=== PATIENT | female | born 2005 | race Caucasian/White ===

== ENCOUNTER 2023-07-06 13:10 | Outpatient (AMB) | payer OTHER, SELFPAY ==
--- NOTE | 2023-07-06 13:16 | A.OFFVIS_ITS ---
Intake Vital Signs 07/06/23 13:18 Height 5 ft Weight 132 lb 4.438 oz BMI 25.8 BP 113/68 Blood Pressure Location Lt brachial Position Sitting Pulse 94 Intake Visit Reasons: chronic constipation Intake Note: Jaime presents in the office as a new patient for constipation. CC: She states that she is here today for excessive constipation - she always has blood when she has a BM. Bloating in her stomach from not being able to have a BM. [employer] Required: No Allergies Seasonal Allergies Allergy (Mild, Verified 07/06/23 13:19) Unknown Medication List - Last Reconciled 07/06/23 by Abbey Stewart PA-C fluoxetine 10 mg PO DAILY magnesium citrate 150 mL PO DAILY naproxen (Naprosyn) 500 mg PO BID ondansetron 4 mg PO Q8H polyethylene glycol 3350 (Miralax) 17 grams PO DAILY sennosides (Ex-Lax (sennosides)) 10 mg PO BEDTIME trazodone 20 mg PO DAILY HPI HPI Comments History of Present Illness Details 2nd opinion-here today with her mother-s een previously by GI within complaints A 17 y/o female referred with constipation-stool is very hard- she has BRBPR when strains. She does not have any abdominal pain. No other complaints, She skip breakfast lunch- she eats daily Not usually eating any dinner- she eats some fruits, she does not drink much water No nausea, vomiting, hematemesis, abdominal pain, fever or chills She had a colonoscopy at [facility] in [place]- all normal bx-about 2 years ago [facility] Surgical History (Updated 07/07/23 @ 07:49 by Abbey Stewart PA-C) Hx of colonoscopy Hx of tonsillectomy Hx of appendectomy Family History (Updated 07/06/23 @ 13:41 by Abbey Stewart PA-C) Brother Colon polyps Social History (Updated 07/06/23 @ 13:41 by Abbey Stewart PA-C) Household Members: Family Alcohol intake: current Alcohol intake frequency: does not drink Patient Tobacco Use Status: Never used Tobacco Current occupation: [employer] Review of Systems Const All systems reviewed & are unremarkable except as noted in HPI and below Card Denies chest pain and Denies dyspnea Resp Denies dyspnea GI Denies abdominal pain, Reports hematochezia, Reports constipation, Denies nausea and Denies vomiting Physical Exam Vital Signs: Last Vital Signs Pulse 94 07/06/23 13:18 BP 113/68 07/06/23 13:18 BMI result Body Mass Index 25.8 Const General: cooperative, healthy appearing and comfortable Orientation/consciousness: patient oriented x3 Limitations: no limitations Eyes Sclerae: sclerae normal Resp Effort & Inspection: normal respiratory effort and able to speak in complete sentences Auscultation: clear to auscultation bilaterally, no rales, no rhonchi and no wheezes Cardio Rate: regular rate Rhythm: regular rhythm Heart sounds: S1 normal heart sound present and S2 normal heart sound present GI Inspection: Yes normal to inspection Palpation (GI): Soft to palpation, nontender and no guarding Auscultation: normal bowel sounds Skin General skin exam: no rashes or lesions noted Neuro General: patient oriented x3 Extrem General: Yes full ROM Psych Appearance: grossly normal and well kempt Mental Status: mental status grossly normal Speech and movement: Normal speech and movement present Affect: normal affect Attitude: cooperative Thought process: Normal thought process present Thought content: Normal thought content present Assessment & Plan Assessment & Plan (1) Chronic constipation: Comment: P/E- unremarkable mom present - questions- answered Code(s): K59.09 - Other constipation Plan: consistent bowel regimen HFD labs Plan Labs Bowel regimen HFD Orders: Orders Thyroid Stimulating Hormone 07/06/23 R19.8 - Other specified symptoms and signs involving the digestive system and abdomen Complete Blood Count Auto Diff 07/06/23 K59.09 - Other constipation Comprehensive Met. Panel 07/06/23 K58.9 - Irritable bowel syndrome without diarrhea HCG Quantitative 07/06/23 K59.09 - Other constipation Medications: New docusate sodium (Colace) 200 mg (2 x 100 mg) PO BEDTIME 30 days 60 caps 5RF calcium polycarbophil (Fiber Laxative (calcium polycarbophil)) 1,250 mg (2 x 625 mg) PO DAILY 30 days 60 tabs 3RF Patient Instructions: Labs Bowel regimen HFD-encouraged- monitor sx Encouraged to call with questions or concerns. Coding Level of Care Code New Pt Level 4 (47945) Diagnoses Chronic constipation K59.09 Time Spent (min) 35 Comment previous GI work up
[2023-07-06 13:18] VITALS: BP 113/68; PULSE 94; BMI 25.8
== END 2023-07-06 15:16 | disposition home or self-care (01) ==
PROVIDERS: Visit Provider Physician Assistant
DX: K59.09 Other constipation (principal)
CPT/HCPCS: 99204

== ENCOUNTER 2023-07-06 13:10 | Outpatient (REF) | payer OTHER, SELFPAY ==
[2023-07-06 15:12] LABS: MANUAL DIFF FLAG NO
[2023-07-06 15:25] LABS: Basophils Absolute Auto 0.1 X10*3/uL (0.0-0.2); Basophils Percent Auto 0.5 % (0-2); Eosinophils Absolute Auto 0.4 X10*3/uL (0.0-0.4); Hematocrit 40.8 % (37.0-47.0); Imm Gran Abs Auto 0.05 X10*3/uL (0.00-0.03); Imm Gran Pct Auto 0.4 % (0.0-0.4); Lymphocytes Absolute Auto 3.2 X10*3/uL (1.2-4.9); Lymphocytes Percent Auto 26.2 % (20-40); Mean Corpuscular HGB Conc 34.3 g/dl (31.0-35.0); Mean Corpuscular Hemoglobin 28.2 pg (27.0-33.0); Mean Corpuscular Volume 82.1 fL (80.0-98.0); Mean Platelet Volume 11.7 fL (9.4-12.3); Monocytes Absolute Auto 0.7 X10*3/uL (0.1-1.2); Monocytes Percent Auto 5.9 % (2-11); Neutrophils Absolute Auto 7.9 x10*3/uL (2.0-8.3); Platelet Count 321 X10*3/uL (160-400); Red Blood Count 4.97 X10*6/uL (4.20-5.50); Red Cell Distribution Width 14.4 % (11.0-16.0); White Blood Count 12.3 X10*3/uL (4.8-10.8)
[2023-07-06 15:52] LABS: Alanine Aminotransferase 9 U/L (0-31); Albumin Level 4.3 g/dL (3.5-5.0); Alkaline Phosphatase 64 U/L (39-117); Anion Gap 12 (12-20); Aspartate Amino Transferase 14 U/L (5-31); Bilirubin Total 0.2 mg/dL (0.0-1.0); Blood Urea Nitrogen 10 mg/dL (9-16); Calcium 9.6 mg/dL (8.4-10.2); Carbon Dioxide 22 mmol/L (22-29); Chloride 109 mmol/L (96-108); Estimated Glomerular Filt Rate > 60; Glucose Random 74 mg/dL (60-115); Potassium 4.4 mmol/L (3.3-5.1); Sodium 139 mmol/L (135-145); Total Protein 7.6 g/dL (6.5-8.0)
[2023-07-06 16:12] LABS: HCG Quantitative < 2 mIU/mL; Thyroid Stimulating Hormone 0.89 uIU/mL (0.32-4.0)
== END 2023-07-06 13:11 | disposition home or self-care (01) ==
LOC: HO.LAB 13:10
PROVIDERS: Visit Provider Physician Assistant
DX: K59.09 Other constipation (principal); K58.9 Irritable bowel syndrome, unspecified; R19.8 Other specified symptoms and signs involving the digestive system and abdomen
CPT/HCPCS: 36415; 80053; 84443; 84702; 85025; 99202

== ENCOUNTER 2023-08-25 12:11 | Outpatient (AMB) | payer OTHER, SELFPAY ==
--- NOTE | 2023-08-25 12:13 | MHC.OFFVIS ---
Intake Vital Signs 08/25/23 12:26 08/25/23 12:56 Height 5 ft Weight 138 lb 7.205 oz BMI 27.0 BP 103/58 L Blood Pressure Location Lt brachial Position Sitting Pulse 88 100 Intake Visit Reasons: Follow up constipation Intake Note: Patient is seen in office for follow up visit, following constipation. Pt c/o: doing better still straining, goes up to 3/4 times a day, continued blood in stool, taking meds Rx Stock Turner Required: No Accompanied by: Self / Same As Patient Allergies Seasonal Allergies Allergy (Mild, Verified 08/25/23 12:27) Unknown Medication List - Last Reconciled 08/25/23 by Abbey Stewart PA-C bisacodyl (Dulcolax (bisacodyl)) 20 mg (4 x 5 mg) PO ONCE 1 day calcium polycarbophil (Fiber Laxative (calcium polycarbophil)) 1,250 mg (2 x 625 mg) PO DAILY 30 days docusate sodium (Colace) 200 mg (2 x 100 mg) PO BEDTIME 30 days fluoxetine 10 mg PO DAILY magnesium citrate 150 mL PO DAILY naproxen (Naprosyn) 500 mg PO BID norelgestromin-ethin.estradiol 150-35 mcg/24 hr (Xulane) 1 patch transdermal Q7D ondansetron 4 mg PO Q8H polyethylene glycol 3350 (Miralax) 238 grams PO ONCE PRN 1 day polyethylene glycol 3350 (Miralax) 17 grams PO DAILY sennosides (Ex-Lax (sennosides)) 10 mg PO BEDTIME trazodone 20 mg PO DAILY HPI HPI Comments History of Present Illness Details A 17 y/o female f/u [facility]- better with senna- drinking water-BM Q1-2 days- no belly pain-trying to eat more fiber- noted more BRPPR- no hemorrhoids- has back pain prior to BM-she is here again today with her mom had they are very worried reviewed labs- WBC was elevated- unsuccessful call attempts- Reviewed correct contact info- Reviewed bowel prep regimen however somewhat inconsistent-encouraged MiraLax Will repeat cbc No nausea, vomiting, hematemesis, abdominal pain fever or chills PFSH Surgical History Hx of colonoscopy Hx of tonsillectomy Hx of appendectomy Family History Brother Colon polyps Social History Household Members: Family Alcohol intake: current Alcohol intake frequency: does not drink Patient Tobacco Use Status: Never used Tobacco Current occupation: [employer] Review of Systems Const All systems reviewed & are unremarkable except as noted in HPI and below Card Denies chest pain, Denies rapid heart rate and Denies dyspnea Resp Denies dyspnea GI Denies abdominal pain, Reports hematochezia, Denies nausea and Denies hematemesis Physical Exam Vital Signs: Last Vital Signs Pulse 100 08/25/23 12:56 BP 103/58 L 08/25/23 12:26 BMI result Body Mass Index 27.0 Const General: cooperative, healthy appearing and no acute distress Orientation/consciousness: patient oriented x3 Limitations: no limitations Eyes Sclerae: sclerae normal Resp Effort & Inspection: normal respiratory effort and able to speak in complete sentences Auscultation: clear to auscultation bilaterally, no rales, no rhonchi and no wheezes Cardio Rate: tachycardic (A AL 100) Rhythm: regular rhythm GI Palpation (GI): Soft to palpation and nontender Auscultation: normal bowel sounds Skin General skin exam: no rashes or lesions noted Neuro General: patient oriented x3 Extrem General: Yes full ROM Psych Appearance: grossly normal and well kempt Mental Status: mental status grossly normal Speech and movement: Normal speech and movement present and Clear speech present Affect: Anxious affect present Attitude: cooperative Thought process: Normal thought process present Thought content: Normal thought content present Assessment & Plan Assessment & Plan (1) Chronic constipation: Comment: Consistent bowel Code(s): K59.09 - Other constipation Plan: Reinforced bowel regimen (2) Rectal bleeding: Comment: Maybe hemorrhoidal-reviewed procedure, rare risk need for escort Code(s): K62.5 - Hemorrhage of anus and rectum Plan: Encourage bowel regimen Avoid straining Maintain high-fiber diet Mbdnufllgmn-so-qsu be low yield-R/o IBD-other underlying causes of bleeding Plan colonoscopy- DX MG prep- also 1 wk before miralax QHS Orders: Orders Erythrocyte Sedimentation Rate Today R19.7 - Diarrhea, unspecified Colonoscopy - GI Use Only Today K62.5 - Hemorrhage of anus and rectum Complete Blood Count Auto Diff Today K59.09 - Other constipation C Reactive Protein Today K59.09 - Other constipation, K62.5 - Hemorrhage of anus and rectum Calprotectin, Fecal Today K62.5 - Hemorrhage of anus and rectum Medications: New bisacodyl (Dulcolax (bisacodyl)) Day before procedure, prep day Take 4 tablets by mouth upon awakening followed by large glass of water 20 mg (4 x 5 mg) PO ONCE 1 day 4 tabs 0RF colonoscopy prep Z12.11 - Encounter for screening for malignant neoplasm of colon polyethylene glycol 3350 (Miralax) Take as directed by mouth the day before your procedure. 238 grams PO ONCE 1 day PRN 238 grams 0RF laxative effect Patient Instructions: Opportunity for questions from patient as well as her mom Consistent bowel regimen Diagnostic colonoscopy, extended prep given constipation-should take MiraLax q.h.s. for 1 week prior to prep day Encouraged to call with any questions or concerns Coding Level of Care Code Est Pt Level 3 (11888) Diagnoses Chronic constipation K59.09 Rectal bleeding K62.5 Time Spent (min) 30
[2023-08-25 12:26] VITALS: BP 103/58; PULSE 88; BMI 27.0
[2023-08-25 12:56] VITALS: PULSE 100
== END 2023-08-25 13:14 | disposition home or self-care (01) ==
PROVIDERS: PCP Nurse Practitioner Family; Visit Provider Physician Assistant
DX: K59.09 Other constipation (principal); K62.5 Hemorrhage of anus and rectum
CPT/HCPCS: 99213

== ENCOUNTER 2023-08-25 12:11 | Outpatient (REF) | payer OTHER, SELFPAY ==
[2023-08-25 13:39] LABS: MANUAL DIFF FLAG NO
[2023-08-25 14:16] LABS: Basophils Percent Auto 0.4 % (0-2); Eosinophils Absolute Auto 0.1 X10*3/uL (0.0-0.4); Eosinophils Percent Auto 1.1 % (0-4); Hematocrit 36.4 % (37.0-47.0); Hemoglobin 12.8 g/dl (12.0-16.0); Imm Gran Abs Auto 0.04 X10*3/uL (0.00-0.03); Imm Gran Pct Auto 0.4 % (0.0-0.4); Lymphocytes Absolute Auto 2.5 X10*3/uL (1.2-4.9); Lymphocytes Percent Auto 24.5 % (20-40); Mean Corpuscular HGB Conc 35.2 g/dl (31.0-35.0); Mean Corpuscular Hemoglobin 28.1 pg (27.0-33.0); Mean Corpuscular Volume 79.8 fL (80.0-98.0); Mean Platelet Volume 11.6 fL (9.4-12.3); Monocytes Absolute Auto 0.6 X10*3/uL (0.1-1.2); Neutrophils Absolute Auto 6.8 x10*3/uL (2.0-8.3); Neutrophils Percent Auto 67.6 % (45-73); Platelet Count 292 X10*3/uL (160-400); Red Blood Count 4.56 X10*6/uL (4.20-5.50); Red Cell Distribution Width 13.9 % (11.0-16.0)
[2023-08-25 14:42] LABS: C Reactive Protein 0.92 mg/dL (< or = 0.50)
[2023-08-25 14:57] LABS: Erythrocyte Sedimentation Rate 3 MM/HR (0-20)
== END 2023-08-25 12:12 | disposition home or self-care (01) ==
LOC: HO.LAB 12:11
PROVIDERS: PCP Nurse Practitioner Family; Visit Provider Physician Assistant
DX: K62.5 Hemorrhage of anus and rectum (principal); R19.7 Diarrhea, unspecified; K59.09 Other constipation
CPT/HCPCS: 36415; 85025; 85652; 86140; 99212

== ENCOUNTER 2023-08-30 | Outpatient (REF) | payer OTHER, SELFPAY ==
[2023-09-07 01:48] LABS: Calprotectin, Fecal 69 mcg/g
== END 2023-08-30 00:01 | disposition home or self-care (01) ==
LOC: HO.LNP
PROVIDERS: Visit Provider Physician Assistant
DX: K62.5 Hemorrhage of anus and rectum (principal)
CPT/HCPCS: 83993

== ENCOUNTER 2023-09-22 08:03 | Day surgery (SDC) | payer OTHER, SELFPAY ==
[2023-09-18 10:04] VITALS: BMI 26.9
--- NOTE | 2023-09-18 15:31 | HO.ANESPROP2 ---
HPI - Anesthesia Eval Consult details Narrative: 17yo F for Colonoscopy PMFSH Active Problems Active Problems: All Active Problems (Updated 09/18/23 @ 10:05 by Abi Vuong RN) Rectal bleeding (Acute) Chronic constipation (Acute) Past Medical History Medical History (Updated 09/18/23 @ 10:05 by Abi Vuong RN) Depression Chronic constipation Family History Family History Brother Colon polyps Surgical History Surgical History Hx of colonoscopy Hx of tonsillectomy Hx of appendectomy Social History Social History Household Members: Family Alcohol intake: current Alcohol intake frequency: does not drink Patient Tobacco Use Status: Never used Tobacco Current occupation: [employer] Meds Allergies Allergy/AdvReac Type Severity Reaction Status Date / Time Seasonal Allergies Allergy Mild Unknown Verified 08/25/23 12:27 Home Medications Medication Instructions Recorded Confirmed Last Taken Type fluoxetine 10 mg capsule 10 mg PO DAILY 07/06/23 09/18/23 Unknown History magnesium citrate 150 ml PO DAILY 07/06/23 09/18/23 Unknown History naproxen 500 mg tablet (Naprosyn) 500 mg PO BID 07/06/23 09/18/23 Unknown History ondansetron 4 mg disintegrating 4 mg PO Q8H 07/06/23 09/18/23 Unknown History tablet polyethylene glycol 3350 17 17 g PO DAILY 07/06/23 07/06/23 Unknown History gram/dose oral powder (Miralax) sennosides 15 mg tablet (Ex-Lax 10 mg PO BEDTIME 07/06/23 09/18/23 Unknown History (sennosides)) trazodone 50 mg tablet 20 mg PO DAILY 07/06/23 09/18/23 Unknown History norelgestromin 150 mcg-e.estradiol 1 patch transdermal Q7D 08/25/23 09/18/23 Unknown History 35 mcg/24 hr weekly transderm patch (Xulane) Exam Height,Weight and Vital Signs: Height 5 ft Weight 62.596 kg Assessment and Plan Assessment Anesthesia Assessment: Chart Reviewed
--- NOTE | 2023-09-22 08:49 | MHC.SHP ---
Pre-Procedural Eval Section A - 24 Hr Update-Section A only Date of Service: 09/22/23 The patient has been examined within 24 hours of the surgical procedure. The History & Physical has been completed within 30 days and I have reviewed it.: Yes Section B - Complete if H&P > 30 days Chief Complaint: Hemorrhage of anus and rectum Allergies: Allergies Allergy/AdvReac Type Severity Reaction Status Date / Time Seasonal Allergies Allergy Mild Unknown Verified 08/25/23 12:27 Plan Diagnosis/Plan: Unchanged I have reviewed the history and physical and performed a pertinent physical examination on my patient. No changes have occurred unless specified. Time Spent With Patient Time: Total time managing care of this patient today ____ minutes.
[2023-09-22 08:53] VITALS: BP 125/64; PULSE 91; RESP 18; TEMP 36.1; O2SAT 98; BMI 26.7
[2023-09-22 09:05] LABS: UPreg QC Valid YES; Urine Pregnancy NEGATIVE (NEGATIVE)
[2023-09-22] MEDS: Lactated Ringers 1,000 ML 100 ML IVCONT (09:24)
--- NOTE | 2023-09-22 10:29 | HO.ANESPROP2 ---
[facility] Active Problems Active Problems: All Active Problems (Updated 09/18/23 @ 10:05 by Abi Vuong RN) Rectal bleeding (Acute) Chronic constipation (Acute) Past Medical History Medical History Depression Chronic constipation Functional capacity: independent ambulation Patient : No Family History Family History Brother Colon polyps Surgical History Surgical History Hx of colonoscopy Hx of tonsillectomy Hx of appendectomy History of Problems with Anesthesia: No Social History Social History Household Members: Family Alcohol intake: current Alcohol intake frequency: does not drink Patient Tobacco Use Status: Never used Tobacco Use of substances other than those prescribed or required for medical reasons: No Are you DNR?: No Advance Directives: No Advance Directives Information Provided: Yes Current occupation: [employer] Allergies Allergy/AdvReac Type Severity Reaction Status Date / Time Seasonal Allergies Allergy Mild Unknown Verified 08/25/23 12:27 Active Medications: Current Medications Lactated Ringer's (Lr) 1,000 mls @ 100 mls/hr IVCONT .Q10H SHAUNA Last Admin: 09/22/23 09:24 Dose: 100 mls/hr Home Medications Medication Instructions Recorded Confirmed Last Taken Type fluoxetine 10 mg capsule 10 mg PO DAILY 07/06/23 09/18/23 Unknown History magnesium citrate 150 ml PO DAILY 07/06/23 09/18/23 Unknown History naproxen 500 mg tablet (Naprosyn) 500 mg PO BID 07/06/23 09/18/23 Unknown History ondansetron 4 mg disintegrating 4 mg PO Q8H 07/06/23 09/18/23 Unknown History tablet sennosides 15 mg tablet (Ex-Lax 10 mg PO BEDTIME 07/06/23 09/18/23 Unknown History (sennosides)) trazodone 50 mg tablet 20 mg PO DAILY 07/06/23 09/18/23 Unknown History norelgestromin 150 mcg-e.estradiol 1 patch transdermal Q7D 08/25/23 09/18/23 Unknown History 35 mcg/24 hr weekly transderm patch (Xulane) Exam Height,Weight and Vital Signs: Height 5 ft Weight 62.051 kg Last Vital Signs Temp 96.9 F 09/22/23 08:53 Pulse 91 09/22/23 08:53 Resp 18 09/22/23 08:53 BP 125/64 09/22/23 08:53 Pulse Ox 98 09/22/23 08:53 O2 Del Method Room Air 09/22/23 08:53 Pertinent Lab Results Pertinent Lab Results: Laboratory Tests 09/22/23 08:36 Urine Test NEGATIVE Airway Mallampati Class: II TM Dist: >3cm Neck ROM: Full Heart: RRR Lungs: CTA Assessment and Plan Assessment Anesthesia Assessment: Anesthesia Plan Discussed Final Anesthetic Review History of Problems with Anesthesia: No NPO: Yes ASA Class: II Final Preanesthetic Review: Meds/Allgs Chart Reviewed, Consent Obtained/Reviewed and Anes Risks/Benef Reviewed Patient Risk: Low Procedure Risk: Low Anesthetic Plan Anesthetic Plan: MAC: Disposition: Standard PACU
--- NOTE | 2023-09-22 11:40 | P.OP_ITS ---
Operative Note Operative Note Date of Service: 09/22/23 Narrative: Procedure: Colonoscopy Indication: Rectal bleeding Endoscopist: Cristina Arriola MD Anesthesia Provider: Dr Mine Nunes Anesthesia type: MAC Instrument: Olympus [id number]-[id number] Consent: Indication, risks vs benefits, and alternatives were discussed with the patient who gave written informed consent to proceed. EKG, pulse, pulse oximetry and blood pressure were monitored throughout the procedure. Please see anesthesia flowsheet. Procedure: The patient was brought to the procedure room and placed in the left lateral decubitus position. IV medications were administered by the anesthesia provider in attendance. A digital rectal exam was performed which was normal. A distal attachment cap was affixed to the tip of the scope and the colonoscope was then inserted through the anus and advanced through the colon to the cecum at 75 cm,and terminal ileum. Appendiceal orifice and ileocecal valve were identified. Mucosa was carefully examined under high definition white light as the instrument was slowly withdrawn in a retrograde panoramic fashion. Retroflexion was performed in rectum. The procedure was not difficult. There were no immediate obvious complications. The quality of the prep was BBPS: 2+2+3 = adequate Withdrawal time 9 minutes. Limitations: No limitations. Findings: Mucosa: Normal to cecum and terminal ileum. Protruding lesions: * Medium internal hemorrhoids without stigmata of recent bleeding. Impression: 1. Normal colon and terminal ileum mucosa 2. Hemorrhoids Recommendations: - Pt reports history of polyps in her brother at age 14 (? Juvenile polyposis). Was encouraged to check if brother has had genetic testing to see if she is at- risk. Reassuringly no polyps on exam today as outlined above.
[2023-09-22 11:42] VITALS: BP 86/36; PULSE 84; RESP 16; TEMP 36.4; O2SAT 100
--- NOTE | 2023-09-22 11:43 | HO.POSTANES ---
Post Anesthesia Evaluation Post Anesthesia Evaluation Date of Service: 09/22/23 Vital Signs: Vital Signs Temp Pulse Resp BP Pulse Ox O2 Del Method 09/22/23 08:53 96.9 F 91 18 125/64 98 Room Air Anesthesia: Monitored Mental Status: Awake Pain Control: Satisfactory Nausea/Vomiting: None Hydration: Adequate Anesthesia-Related Issues: No Anes. Related Issues
[2023-09-22 11:57] VITALS: BP 107/62; PULSE 85; RESP 17; TEMP 36.4; O2SAT 100
== END 2023-09-22 12:40 | disposition home or self-care (01) ==
PROVIDERS: Nurse Practitioner; PCP Nurse Practitioner Family; Visit Provider Internal Medicine
PROC: 0DJD8ZZ Inspection of Lower Intestinal Tract, Via Natural or Artificial Opening Endoscopic (ICD-10-PCS; CPT 45378; principal; 2023-09-22 10:50)
DX: K64.8 Other hemorrhoids (principal); K59.09 Other constipation
CPT/HCPCS: 45378; 81025; J2704

== ENCOUNTER → 2023-09-22 08:03 | Outpatient (BNV) | payer OTHER, SELFPAY | PROVIDERS: PCP Nurse Practitioner Family; Visit Provider Internal Medicine | DX: K62.5 Hemorrhage of anus and rectum (principal); K64.8 Other hemorrhoids; Z83.719 Family history of colon polyps, unspecified | CPT/HCPCS: 45378 ==

== ENCOUNTER 2023-09-28 23:41 | Emergency (ER) | payer OTHER, SELFPAY ==
--- NOTE | ~2023-09-28 | XR_ITS ---
EXAMINATION: XR ABDOMEN KUB CLINICAL INDICATION: Pain. COMPARISON: None available. TECHNIQUE: AP view of the abdomen. FINDINGS: The bowel gas pattern is normal with no evidence of ileus or obstruction. There is retained stool throughout. No unusual soft tissue calcifications are noted. The bones are unremarkable. XR/XR KUB IMPRESSION: Nonobstructive bowel gas pattern. Retained stool.
[2023-09-29 00:08] VITALS: BP 121/71; PULSE 88; RESP 16; TEMP 36.9; O2SAT 100; BMI 29.1
[2023-09-29 00:38] LABS: MANUAL DIFF FLAG NO
[2023-09-29 00:45] LABS: Basophils Absolute Auto 0.1 X10*3/uL (0.0-0.2); Basophils Percent Auto 0.4 % (0-2); Eosinophils Absolute Auto 0.3 X10*3/uL (0.0-0.4); Eosinophils Percent Auto 2.5 % (0-4); Hematocrit 35.7 % (37.0-47.0); Hemoglobin 12.5 g/dl (12.0-16.0); Imm Gran Abs Auto 0.03 X10*3/uL (0.00-0.03); Imm Gran Pct Auto 0.2 % (0.0-0.4); Lymphocytes Percent Auto 32.8 % (20-40); Mean Corpuscular Hemoglobin 28.5 pg (27.0-33.0); Mean Corpuscular Volume 81.5 fL (80.0-98.0); Mean Platelet Volume 11.5 fL (9.4-12.3); Monocytes Absolute Auto 1.1 X10*3/uL (0.1-1.2); Monocytes Percent Auto 9.2 % (2-11); Neutrophils Absolute Auto 6.6 x10*3/uL (2.0-8.3); Neutrophils Percent Auto 54.9 % (45-73); Platelet Count 271 X10*3/uL (160-400); Red Blood Count 4.38 X10*6/uL (4.20-5.50); Red Cell Distribution Width 14.1 % (11.0-16.0); White Blood Count 12.1 X10*3/uL (4.8-10.8)
[2023-09-29 00:48] LABS: Appearance Urine Clear; Color Urine Yellow; Glucose Urine UA Negative (Negative); Leukocyte Esterase Urine Negative (Negative); Nitrite Urine Negative (Negative); Specific Gravity - Urine 1.015 (1.005-1.025); Urine Blood Negative (Negative); Urine Ketones Negative (Negative); Urine Protein Negative (Neg-Trace)
[2023-09-29 00:53] LABS: UPreg QC Valid YES; Urine Pregnancy NEGATIVE (NEGATIVE)
[2023-09-29 01:05] LABS: Alanine Aminotransferase 8 U/L (0-31); Albumin Level 3.8 g/dL (3.5-5.0); Alkaline Phosphatase 65 U/L (39-117); Anion Gap 9 (12-20); Aspartate Amino Transferase 11 U/L (5-31); Bilirubin Total 0.1 mg/dL (0.0-1.0); Blood Urea Nitrogen 13 mg/dL (9-16); Calcium 8.7 mg/dL (8.4-10.2); Carbon Dioxide 19 mmol/L (22-29); Chloride 115 mmol/L (96-108); Creatinine Clr Calc Pharmacy 114.4; Estimated Glomerular Filt Rate > 60; Glucose Random 98 mg/dL (60-115); Lipase 27 U/L (8-78); Potassium 4.1 mmol/L (3.3-5.1); Sodium 139 mmol/L (135-145); Total Protein 6.8 g/dL (6.5-8.0)
[2023-09-29 03:02] VITALS: BP 123/51; PULSE 89; RESP 12; TEMP 36.5; O2SAT 98
--- NOTE | 2023-09-29 04:18 | ED_ITS ---
HPI - Abdominal Pain General Chief Complaint: Abdominal Pain Stated Complaint: left sided pain Time Seen by Provider: 09/29/23 03:51 Source: patient Mode of arrival: ambulatory History of Present Illness HPI narrative: 17-year-old female who presents with left lower quadrant discomfort that is been ongoing since last night and she states her last bowel movement was Thursday and she has a history of severe constipation and has recently undergone a colonoscopy this past Thursday. Patient denies any fever, chills, nausea, vomiting and denies any urinary symptoms. Patient is status post appendectomy. Related Data Home Medications Medication Instructions Recorded Confirmed fluoxetine 10 mg capsule 10 mg PO DAILY 07/06/23 09/18/23 magnesium citrate 150 ml PO DAILY 07/06/23 09/18/23 naproxen 500 mg tablet (Naprosyn) 500 mg PO BID 07/06/23 09/18/23 ondansetron 4 mg disintegrating 4 mg PO Q8H 07/06/23 09/18/23 tablet sennosides 15 mg tablet (Ex-Lax 10 mg PO BEDTIME 07/06/23 09/18/23 (sennosides)) trazodone 50 mg tablet 20 mg PO DAILY 07/06/23 09/18/23 norelgestromin 150 mcg-e.estradiol 1 patch transdermal Q7D 08/25/23 09/18/23 35 mcg/24 hr weekly transderm patch (Xulane) Previous Rx's Medication Instructions Recorded calcium polycarbophil 625 mg 1,250 mg (2 x 625 mg) PO DAILY 30 07/06/23 tablet (Fiber Laxative (calcium days #60 tabs polycarbophil)) docusate sodium 100 mg capsule 200 mg (2 x 100 mg) PO BEDTIME 30 07/06/23 (Colace) days #60 caps Allergies Allergy/AdvReac Type Severity Reaction Status Date / Time Seasonal Allergies Allergy Mild Unknown Verified 09/29/23 00:08 Review of Systems Review of Systems Pertinent positives and negatives as stated in HPI PMFSH Past Medical History Source: nursing notes reviewed Medical History Depression Chronic constipation Surgical History Hx of colonoscopy Hx of tonsillectomy Hx of appendectomy Family History Family History Brother Colon polyps Social History Social History Household Members: Family Alcohol intake: current Alcohol intake frequency: does not drink Patient Tobacco Use Status: Never used Tobacco Smoked in Last 30 Days: No Use of substances other than those prescribed or required for medical reasons: No Advance Directives: No Advance Directives Information Provided: No Patient : No Current occupation: [employer] Physical Exam ED Vital Signs: Vital Signs - 24 hr 09/29/23 00:08 09/29/23 03:02 Temperature 98.4 F 97.7 F Pulse Rate 88 89 Respiratory Rate 16 12 Blood Pressure 121/71 123/51 L Pulse Oximetry 100 98 Oxygen Delivery Method Room Air Room Air BMI result Body Mass Index 29.1 VITAL SIGNS: Reviewed. GENERAL: Well developed, well nourished, in no acute distress. HEAD: Normocephalic/atraumatic EYES: PERRLA, EOMI EARS: Ext canals without abnormality NOSE: Nares patent bilateral OROPHARYNX: no oral lesions noted, posterior pharynx clear NECK: Supple, no adenopathy LUNGS: Normal breath sounds. No adventitious sounds or accessory muscle use. SpO2<98> CARDIOVASCULAR: Regular rate and rhythm without noted murmurs ABDOMEN: Soft, left lower quadrant tenderness to palpation without rebound, non- distended with bowel sounds. MUSCULOSKELETAL: No tenderness, deformities, or effusions noted on gross inspection. EXTREMITIES: No cyanosis, clubbing or edema. SKIN: Inspection of the skin reveals no rashes NEUROLOGIC: Alert and oriented x 4. Strength and sensation to light touch were grossly intact x 4. Medical Decision Making Medical Decision Making MDM Narrative: 17-year-old female with history and clinical presentation, DDX: UTI, constipation, ectopic, no clinical suspicion for ovarian torsion. I reviewed all investigations and hematologic indices are significant for non infectious leukocytosis without anemia or thrombocytopenia. Chemistry indices do not demonstrate an AARON or electrolyte/liver enzyme derangements. Urinalysis negative for UTI or hematuria and urine is negative. KUB significant for retained stool and otherwise there is a nonobstructive bowel-gas pattern. All results and findings discussed with the patient at bedside and she understands that she should go home and attempt an enema to help clear herself as the alternative is manual disimpaction, patient agrees with discharge and will use [id number] enema and patient also has a follow-up appointment on 10/05. Differential Diagnosis Differential Diagnoses: The differential diagnosis associated with the presentation includes Please see the discussion above Admission/Observation Consideration of admission/observation: Escalation of care including admission/observation considered Please see the discussion above Lab Data MDM Lab Attestation statement: I reviewed the patient's lab results. Please see the discussion above 09/29/23 00:27 09/29/23 00:27 Labs: Lab Results 09/29/23 Range/Units 00:27 WBC 12.1 H (4.8-10.8) X10*3/uL RBC 4.38 (4.20-5.50) X10*6/uL Hgb 12.5 (12.0-16.0) g/dl Hct 35.7 L (37.0-47.0) % MCV 81.5 (80.0-98.0) fL MCH 28.5 (27.0-33.0) pg MCHC 35.0 (31.0-35.0) g/dl RDW 14.1 (11.0-16.0) % Plt Count 271 (160-400) X10*3/uL MPV 11.5 (9.4-12.3) fL Immature Gran % (Auto) 0.2 (0.0-0.4) % Neut % (Auto) 54.9 (45-73) % Lymph % (Auto) 32.8 (20-40) % [place] % (Auto) 9.2 (2-11) % Eos % (Auto) 2.5 (0-4) % Baso % (Auto) 0.4 (0-2) % Lymph # (Auto) 4.0 (1.2-4.9) X10*3/uL [place] # (Auto) 1.1 (0.1-1.2) X10*3/uL Eos # (Auto) 0.3 (0.0-0.4) X10*3/uL Baso # (Auto) 0.1 (0.0-0.2) X10*3/uL Abs Immat Gran (auto) 0.03 (0.00-0.03) X10*3/uL Absolute Neuts (auto) 6.6 (2.0-8.3) x10*3/uL Absolute Nucleated RBC 0.000 (0.0-0.012) X10*3/uL Nucleated RBC % (auto) 0.0 (0.0-0.2) /100WBC Sodium 139 (135-145) mmol/L Potassium 4.1 (3.3-5.1) mmol/L Chloride 115 H (96-108) mmol/L Carbon Dioxide 19 L (22-29) mmol/L Anion Gap 9 L (12-20) BUN 13 (9-16) mg/dL Creatinine 0.65 (0.5-1.4) mg/dL Estim Creat Clear Calc 114.4 Estimated GFR > 60 Random Glucose 98 (60-115) mg/dL Calcium 8.7 D (8.4-10.2) mg/dL Total Bilirubin 0.1 (0.0-1.0) mg/dL AST 11 (5-31) U/L ALT 8 (0-31) U/L Alkaline Phosphatase 65 (39-117) U/L Total Protein 6.8 (6.5-8.0) g/dL Albumin 3.8 (3.5-5.0) g/dL Lipase 27 (8-78) U/L Urine Color Yellow Urine Appearance Clear Urine pH 6.0 (5.0-9.0) Ur Specific Mathews 1.015 (1.005-1.025) Urine Protein Negative (Neg-Trace) mg/dL Urine Glucose (UA) Negative (Negative) mg/dL Urine Ketones Negative (Negative) mg/dL Urine Blood Negative (Negative) Urine Nitrite Negative (Negative) Ur Leukocyte Esterase Negative (Negative) Urine Test NEGATIVE (NEGATIVE) Radiology Impression Discussion of test interpretation with radiology: I have reviewed the radiologist's reading. Radiologist Impression: Please see the discussion above External Record Review External record reviewed: Office record, Outpatient record, Prior outpatient labs and Prior outpatient radiology Critical Care Time Critical Care Time Critical Care Time: Yes Total Critical Care Time: 30 Attestation: I personally attest to this time spent taking care of the patient. Discharge Plan Discharge Clinical Impression: Chronic constipation, Abdominal discomfort Patient Disposition: Home, Self-Care Instructions: Fleet Enema (ED), Constipation (ED), High Fiber Diet (ED) Additional Instructions: 1. Resume all home medications as prescribed. 2. Keep your scheduled appointment. Return to the ER for any worsening symptoms such as nausea, vomiting, fever, chills. Prescriptions: No Action naproxen [Naprosyn] 500 mg tablet 500 mg PO BID ondansetron 4 mg tablet,disintegrating 4 mg PO Q8H fluoxetine 10 mg capsule 10 mg PO DAILY trazodone 50 mg tablet 20 mg PO DAILY Ex-Lax (sennosides) 15 mg tablet 10 mg PO BEDTIME magnesium citrate Solution 150 ml PO DAILY docusate sodium [Colace] 100 mg capsule 200 mg PO BEDTIME 30 Days Qty: 60 5RF calcium polycarbophil [Fiber Laxative (ca polycarbo)] 625 mg tablet 1,250 mg PO DAILY 30 Days Qty: 60 3RF Xulane 150-35 mcg/24 hr patch weekly 1 patch transdermal Q7D Rx Instructions: apply once weekly for 3 weeks of a 4-week cycle
[2023-09-29] MEDS: Acetaminophen 325 MG TABLET 975 MG PO (05:17)
[2023-09-29] MEDS: Ibuprofen 400 MG TABLET PO (05:18)
[2023-09-29 05:20] VITALS: BP 116/67; PULSE 77; RESP 14; TEMP 37.1; O2SAT 100
== END 2023-09-29 05:28 | disposition home or self-care (01) ==
PROVIDERS: Emergency Provider Student in an Organized Health Care Education/Training Program
DX: R10.32 Left lower quadrant pain (principal); K59.00 Constipation, unspecified; Z79.899 Other long term (current) drug therapy
CPT/HCPCS: 36415; 74018; 80053; 81003; 81025; 83690; 85025; 99283; 99284

== ENCOUNTER 2023-10-06 13:16 | Outpatient (AMB) | payer OTHER, SELFPAY ==
--- NOTE | 2023-10-06 13:19 | MHC.OFFVIS ---
Intake Vital Signs 10/06/23 13:22 Height 4 ft 11 in Weight 143 lb 4.807 oz BMI 28.9 BP 115/57 L Blood Pressure Location Lt brachial Position Sitting Pulse 94 Intake Visit Reasons: S/p colon Intake Note: Jaime presents in the office as a follow up colonoscopy. CC: She states that she has had to go to the ER twice after the procedure. 2 days later she was having abdominal pains and she was unable to take the pains. She thought it was constipation but she was going normal. It was on her left side of her pelvis - she went to urgent care and OBGYN. She went back to the ED on Thursday and was told she had an infection. She is taking flagyl at the moment. She is barely eating due to nausea and sometimes she ends up vomiting. Pot Operator Required: No Allergies Seasonal Allergies Allergy (Mild, Verified 10/06/23 13:20) Unknown Medication List - Last Reconciled 10/06/23 by Abbey Stewart PA-C calcium polycarbophil (Fiber Laxative (calcium polycarbophil)) 1,250 mg (2 x 625 mg) PO DAILY 30 days docusate sodium (Colace) 200 mg (2 x 100 mg) PO BEDTIME 30 days fluoxetine 10 mg PO DAILY magnesium citrate 150 mL PO DAILY metronidazole (Flagyl) 375 mg PO BID naproxen (Naprosyn) 500 mg PO BID norelgestromin-ethin.estradiol 150-35 mcg/24 hr (Xulane) 1 patch transdermal Q7D omeprazole mg PO ONCE PRN sennosides (Ex-Lax (sennosides)) 10 mg PO BEDTIME trazodone 20 mg PO DAILY HPI HPI Comments History of Present Illness Details A 17-year-old female follows up after recent colonoscopy for rectal bleeding. Reports he older brother polyps in his early teens-( 14) he has not been tested- She states that she went to the ER twice after the procedure. 2 days later she was having abdominal pains and she was unable to take the pains. She thought it was constipation but she was going normal. It was on her left side of her pelvis -KUB-showed retained stool. She had had bowel movement. However continued intermittent pelvic discomfort, she went to urgent care referred her to [facility] [facility] who sent her for U/S at [facility] She went back to the ED [facility] on Monday 10/02-and was told she likely had an infection- prescribed Flagyl- statrted 10/03 - 7 days course-, has side include nausea -Zofran helps appetite is a bit decreased since beginning Flagyl-stool bit loose as well-no abdominal pain No fever or chills Reviewed procedure report and recommended Discussed surgical consult for hemorrhoids- [facility] Medical History (Updated 10/06/23 @ 14:05 by Abbey Stewart PA-C) Depression Chronic constipation Surgical History Hx of colonoscopy Hx of tonsillectomy Hx of appendectomy Family History (Updated 10/06/23 @ 14:01 by Abbey Stewart PA-C) Brother Colon polyps Maternal Uncle Colon cancer Throat cancer Maternal Uncle Intestines cancer Social History Household Members: Family Alcohol intake: current Alcohol intake frequency: does not drink Patient Tobacco Use Status: Never used Tobacco Current occupation: [employer] Physical Exam Vital Signs: Last Vital Signs Pulse 94 10/06/23 13:22 BP 115/57 L 10/06/23 13:22 BMI result Body Mass Index 28.9 Const General: cooperative, healthy appearing, comfortable and no acute distress Nutritional Appearance: well nourished Orientation/consciousness: patient oriented x3 Limitations: no limitations Resp Effort & Inspection: normal respiratory effort and able to speak in complete sentences Neuro General: patient oriented x3 Extrem General: Yes full ROM Psych Appearance: grossly normal and well kempt Mental Status: mental status grossly normal Speech and movement: Normal speech and movement present and Clear speech present Affect: normal affect Attitude: cooperative Thought content: Normal thought content present Results Reviewed Results Reviewed: 09/22/23 Impression: 1. Normal colon and terminal ileum mucosa 2. Hemorrhoids Recommendations: - Pt reports history of polyps in her brother at age 14 (? Juvenile polyposis). Was encouraged to check if brother has had genetic testing to see if she is at-risk. Reassuringly no polyps on exam today as outlined above. 09/29/23 XR/XR KUB IMPRESSION: Nonobstructive bowel gas pattern. Retained stool. Assessment & Plan Assessment & Plan (1) Rectal bleeding: Comment: Large hemorrhoids noted colonoscopy Code(s): K62.5 - Hemorrhage of anus and rectum Plan: Refer to surgical (2) Chronic constipation: Comment: Consistent bowel Code(s): K59.09 - Other constipation Plan: Concerns bowel regimen (3) Nausea: Comment: , since beginning Flagyl, Zofran beneficial Code(s): R11.0 - Nausea Plan: Zofran 4 mg daily as needed for nausea (4) Hemorrhoids: Code(s): K64.9 - Unspecified hemorrhoids Plan: Avoid straining Maintain high-fiber diet Surgical consult Plan Consider genetic testing-family GI history unclear-mother is present unable to confirm detail Noted for brother multiple polyps at age 14-no further testing or detail Ref surgical consult-for hemorrhoids as well assess for further test Complete antibx tx Orders: Referrals General Surgery Referral K64.9 - Unspecified hemorrhoids Medications: New ondansetron HCl 4 mg PO DAILY 5 days 5 tabs 0RF Patient Instructions: Very pleasant 17-year-old female follows up after recent colonoscopy for rectal bleeding Reviewed procedure report and recommendations She will continue Flagyl to complete course She may take Zofran as needed for nausea Sent to pharmacy Avoid alcohol and vinegar or like products Discussed surgical referral for hemorrhoids as there expertise will serve her well Will discuss criteria for genetic testing as well. Encouraged to call with any questions or concerns Appreciate the opportunity assist in the care the patient Coding Level of Care Code Est Pt Level 3 (87227) Diagnoses Rectal bleeding K62.5 Chronic constipation K59.09 Nausea R11.0 Hemorrhoids K64.9 Time Spent (min) 25
[2023-10-06 13:22] VITALS: BP 115/57; PULSE 94; BMI 28.9
== END 2023-10-06 14:23 | disposition home or self-care (01) ==
PROVIDERS: PCP Nurse Practitioner Family; Visit Provider Physician Assistant
DX: K62.5 Hemorrhage of anus and rectum (principal); K59.09 Other constipation; R11.0 Nausea; K64.9 Unspecified hemorrhoids
CPT/HCPCS: 99213

== ENCOUNTER → 2023-10-06 13:16 | Outpatient (BNVA) | payer OTHER, SELFPAY | PROVIDERS: PCP Nurse Practitioner Family; Visit Provider Physician Assistant | DX: K64.9 Unspecified hemorrhoids (principal); K62.5 Hemorrhage of anus and rectum; K59.09 Other constipation; R11.0 Nausea | CPT/HCPCS: 99212 ==

== ENCOUNTER 2023-10-15 09:45 | Outpatient (AMB) | payer OTHER, SELFPAY ==
[2023-10-15 09:52] VITALS: BP 118/68; PULSE 101; BMI 28.1
--- NOTE | 2023-10-15 09:52 | MHC.OFFVIS ---
Intake Vital Signs 10/15/23 09:52 Height 4 ft 11 in Weight 139 lb BMI 28.1 BP 118/68 Blood Pressure Location Rt brachial Position Sitting Pulse 101 H Intake Visit Reasons: Hemorrhoids & ? genetic testing? Intake Note: This patient presents for an assessment for hemorrhoids, ? genetic testing. Patient c/o; reports no rectal bleeding, reports no rectal pain. Notary Public Required: No Accompanied by: Mother Allergies Seasonal Allergies Allergy (Mild, Verified 10/15/23 10:00) Unknown Medication List - Last Reconciled 10/15/23 by Bj Langford MD calcium polycarbophil (Fiber Laxative (calcium polycarbophil)) 1,250 mg (2 x 625 mg) PO DAILY 30 days docusate sodium (Colace) 200 mg (2 x 100 mg) PO BEDTIME 30 days fluoxetine 10 mg PO DAILY magnesium citrate 150 mL PO DAILY metronidazole (Flagyl) 375 mg PO BID naproxen (Naprosyn) 500 mg PO BID norelgestromin-ethin.estradiol 150-35 mcg/24 hr (Xulane) 1 patch transdermal Q7D omeprazole mg PO ONCE PRN ondansetron HCl 4 mg PO DAILY 5 days sennosides (Ex-Lax (sennosides)) 10 mg PO BEDTIME trazodone 20 mg PO DAILY HPI Hemorrhoids & ? genetic testing? HPI Details 17-year-old female referred for a question of issues with hemorrhoids. She describes pain with passage of stools. She describes this as sharp and happens usually with hard stools. She also sees bright blood with bowel movements. She does describe that her pain seems to be the more bothersome symptom at this point. She describes a history of frequent constipation. She denies changes in her bowel habits. [facility] Medical History (Updated 10/15/23 @ 10:21 by Bj Langford MD) Family history of pancreatic cancer Anal fissure Depression Chronic constipation Surgical History Hx of colonoscopy Hx of tonsillectomy Hx of appendectomy Family History Brother Colon polyps Maternal Uncle Colon cancer Throat cancer Maternal Uncle Intestines cancer Social History Household Members: Family Alcohol intake: current Alcohol intake frequency: does not drink Patient Tobacco Use Status: Never used Tobacco Current occupation: [employer] Review of Systems Const Denies chills and Denies fever(s) Card Denies chest pain, Denies dyspnea and Denies dyspnea on exertion Resp Denies cough, Denies dyspnea and Denies dyspnea on exertion GI Denies hematochezia and Denies change in bowel habits Denies hematuria Musc Denies back pain and Denies limited range of motion Neuro Denies focal weakness and Denies convulsions Psych Denies depression and Denies mood swings Physical Exam Vital Signs: Last Vital Signs Pulse 101 H 10/15/23 09:52 BP 118/68 10/15/23 09:52 BMI result Body Mass Index 28.1 Const General: comfortable and no acute distress Orientation/consciousness: patient oriented x3 Neck Neck: Yes no lymphadenopathy Resp Auscultation: clear to auscultation bilaterally Cardio Rhythm: regular rhythm GI Palpation (GI): Soft to palpation, nontender and no guarding Neuro General: patient oriented x3 Office Procedures Anoscopy She was placed in abdelrahman-knife position. The anoscope was gently inserted. A full examination of the anal canal was done. She had small hemorrhoidal columns mostly internal. There was note of a posterior midline fissure. She was tender on this area. There was no other lesions seen. There was no ulcer or any induration on digital exam. There was no bleeding at this time. The sphincter tone did not seem to be hypertonic at this time [id number] Assessment & Plan Assessment & Plan (1) Anal fissure: Code(s): K60.2 - Anal fissure, unspecified Plan: Current exam including anoscopy reveals a posterior midline fissure. She does have hemorrhoids but these are not bulky and mostly internal. I told her that I would not recommend any surgery at this time. Her hemorrhoids are not bulky. Furthermore, she does have a posterior midline fissure. I will try her on a course of nitroglycerin or Rectiv. I will see her again in the office in about 2 months to see how she is doing. I advised her to control constipation. (2) Family history of pancreatic cancer: Code(s): Z80.0 - Family history of malignant neoplasm of digestive organs Plan: She describes a maternal uncle was diagnosed to have pancreatic cancer. She says that the same uncle also had breast cancer I advised her to check if this particular uncle had genetic testing. I explained to her that it would be best if the index patient would be tested 1st before she can be tested We will review her family history down the line. Medications: New nitroglycerin 0.4%(w/w) (Rectiv) 1 inch [place] BID 30 grams 0RF Coding Level of Care Code New Pt Level 3 (69535) Diagnoses Anal fissure K60.2 Family history of pancreatic cancer Z80.0 CPT Codes Details - CPT: [id number] ([id number])
== END 2023-10-15 10:21 | disposition home or self-care (01) ==
PROVIDERS: PCP Nurse Practitioner Family; Referring Provider Physician Assistant; Visit Provider Surgery
DX: K60.2 Anal fissure, unspecified (principal); Z80.0 Family history of malignant neoplasm of digestive organs
CPT/HCPCS: 46600; 99203

== ENCOUNTER → 2023-10-15 09:45 | Outpatient (BNVA) | payer OTHER, SELFPAY | PROVIDERS: PCP Nurse Practitioner Family; Referring Provider Physician Assistant; Visit Provider Surgery | DX: K60.2 Anal fissure, unspecified (principal); Z80.0 Family history of malignant neoplasm of digestive organs | CPT/HCPCS: 46600; 99202 ==

== ENCOUNTER 2025-06-05 16:04 | Emergency (ER) | payer OTHER, SELFPAY ==
[2025-06-05 16:47] VITALS: BP 105/60; PULSE 92; RESP 16; TEMP 36.6; O2SAT 98; BMI 32.3
--- NOTE | 2025-06-05 16:49 | ED.GENADULT ---
HPI - General Adult General Chief complaint: Urogenital-Female Stated complaint: abd pain Time Seen by Provider: 06/05/25 21:22 History of Present Illness ED Provider: Devendra ANTONY narrative: The patient is a 19-year-old who has a apparently been complaining of pelvic pain for 3 months or longer. She has been seen at an emergency room in [place]. She has also been seen at the [facility] emergency room at [facility]. She has followed up with the Gynecology as an outpatient. At 1st the patient told me that she had had a pelvic ultrasound in [place] that showed a small uterine fibroid but no other findings. She told me that she had a repeat ultrasound here at [facility] more recently and that no particular diagnosis was made. There is a working diagnosis of endometriosis and her world travel counselor has a apparently scheduled her for an exploratory laparoscopy in a few weeks. The patient has been taking oral acetaminophen and ketorolac for pain. The patient later told me that in addition to the ultrasound in [place] she had also had a CT scan of the abdomen and pelvis with IV contrast and that this had not shown any alternative diagnosis. The patient also later told me that she has been prescribed tramadol for pain in [place] as well. The patient and the mother also tell me that the patient has white count has been mildly elevated at all of her evaluations for this pain over the last few months. The patient says that she was put on antibiotics when she was seen in the emergency room at [place]. She says that she does not know exactly what kind of antibiotics or what the antibiotics were intended to treat. She says she has not active for over a year. The patient is here with her mother. The mother is extremely frustrated that the patient is complaining of pain every day. The mother says that the acetaminophen and oral ketorolac are not sufficient and that the patient is in too much pain to wait for the surgery. the patient says that the pain today is the same pain that she has been having for the last 3 months. She does not have a new pain today or significant change in her pain. Related Data Home Medications ?Medication ?Instructions ?Recorded ?Confirmed fluoxetine 10 mg capsule 10 mg PO DAILY 07/06/23 10/15/23 magnesium citrate 150 ml PO DAILY 07/06/23 10/15/23 naproxen 500 mg tablet (Naprosyn) 500 mg PO BID 07/06/23 10/15/23 sennosides 15 mg tablet (Ex-Lax 10 mg PO BEDTIME 07/06/23 10/15/23 (sennosides)) trazodone 50 mg tablet 20 mg PO DAILY 07/06/23 10/15/23 norelgestromin 150 mcg-e.estradiol 1 patch transdermal Q7D 08/25/23 10/15/23 35 mcg/24 hr weekly transderm patch (Xulane) metronidazole 375 mg capsule 375 mg PO BID 10/06/23 10/15/23 (Flagyl) omeprazole 20 mg capsule,delayed mg PO ONCE PRN 10/06/23 10/15/23 release Previous Rx's ?Medication ?Instructions ?Recorded calcium polycarbophil 625 mg 1,250 mg (2 x 625 mg) PO DAILY 30 07/06/23 tablet (Fiber Laxative (calcium days #60 tabs polycarbophil)) ondansetron HCl 4 mg tablet 4 mg PO DAILY 5 days #5 tabs 10/06/23 nitroglycerin 0.4 % (w/w) rectal 1 inch IN BID #30 grams 02/01/24 ointment docusate sodium 100 mg capsule 200 mg (2 x 100 mg) PO BEDTIME 05/09/24 #180 caps acetaminophen 500 mg capsule 1,000 mg (2 x 500 mg) PO Q8H PRN 06/05/25 fever or pain #14 caps ketorolac 10 mg tablet 10 mg PO Q8H PRN pain #16 tabs 06/05/25 tramadol 50 mg tablet 50 mg PO Q8H PRN pain #12 tabs 06/05/25 Allergies Allergy/AdvReac Type Severity Reaction Status Date / Time Seasonal Allergies Allergy Mild Unknown Verified 06/05/25 16:49 [facility] Past Medical History Medical History (Updated 06/06/25 @ 00:00 by Tammy Flanagan) Family history of pancreatic cancer Anal fissure Depression Chronic constipation Surgical History Hx of colonoscopy Hx of tonsillectomy Hx of appendectomy Family History Family History Brother Colon polyps Maternal Uncle Colon cancer Throat cancer Maternal Uncle Intestines cancer Social History Social History Household Members: Family Alcohol intake: current Alcohol intake frequency: does not drink Patient Tobacco Use Status: Never used Tobacco Use of substances other than those prescribed or required for medical reasons: No Advance Directives: No Advance Directives Information Provided: No Patient : No Current occupation: [employer] Physical Exam ED Vital Signs: Vital Signs - 24 hr 06/05/25 16:47 06/05/25 20:14 06/05/25 22:20 Temperature 98 F 98.3 F 98.4 F Pulse Rate 92 82 90 Respiratory Rate 16 16 16 Blood Pressure 105/60 114/66 115/56 L Pulse Oximetry 98 98 98 Oxygen Delivery Method Room Air Room Air Room Air 06/05/25 22:40 Temperature 98.4 F Pulse Rate 90 Respiratory Rate 16 Blood Pressure 115/56 L Pulse Oximetry 98 Oxygen Delivery Method Room Air BMI result Body Mass Index 32.3 Const Other: The patient is a 19-year-old female who was awake and alert. She is not appear obviously toxic. She says she is uncomfortable but she does not appear in overt distress although she looks somewhat fatigued. Orientation/consciousness: patient oriented x3 HENMT Other: The face is symmetrical. Mucous membranes moist. Eyes Other: Pupils are round equal, conjunctivae are clear, extraocular movements intact Neck Neck: Yes full ROM Resp Effort & Inspection: normal respiratory effort Auscultation: clear to auscultation bilaterally Cardio Rate: regular rate Rhythm: regular rhythm Heart sounds: S1 normal heart sound present and S2 normal heart sound present GI Other: The patient has bilateral lower abdominal tenderness in the pelvis. No andrew rebound or guarding. Skin Other: The skin is dry and unremarkable Neuro General: patient oriented x3, gait normal, tone normal, no focal motor deficits and CN's II-XI intact bilaterally Extrem Other: There is no calf swelling or tenderness. No asymmetry. No peripheral edema. Course Course Course Narrative: RME: 19 yold female presents to the ED For 3 months of pelvic pain and infromed she may have endometriosis and fribroirds. Patient denied any dysuria hematuria. Labs ordered Medications Administered Discontinued Medications Generic Name Dose Route Start Last Admin Trade Name Freq PRN Reason Stop Dose Admin Ketorolac Tromethamine 30 mg 06/05/25 22:12 06/05/25 22:22 Ketorolac Tromethamine 30 Mg/Ml Vial IM 06/05/25 22:13 30 mg ONCE ONE Administration Tramadol HCl 50 mg 06/05/25 22:14 06/05/25 22:22 Tramadol Hcl 50 Mg Tablet PO 06/05/25 22:15 50 mg ONCE ONE Administration Medical Decision Making Medical Decision Making [facility] Narrative: the patient is a 19-year-old female who was here with her mother. She is complaining of lower abdominal or pelvic pain that has been bothering her for months. She is not currently sexually active and has not been sexually active for over a year. She has apparently been evaluated for this pain at an emergency room in [place] and more recently she was evaluated at the [facility] emergency room at [facility] and she has followed up as an outpatient with Gynecology [facility] and has a plan for laparoscopic surgery to evaluate for possible endometriosis. She has been using oral it oral active and acetaminophen for pain. She is here because she says that the pain is unrelenting and she cannot manage the pain. She does not describe any new aspects to the pain. There is no associated vomiting, no associated diarrhea. No associated vaginal discharge. She says that for several weeks she has felt a sense of urinary urgency and frequency but she has no new dysuria or urgency or frequency. She says that at her previous evaluations she has been noted to have a somewhat elevated white blood count. She says that she was given antibiotics when she was seen several weeks ago at an emergency room in [place]. There was no change in her symptoms as a result of the antibiotics. She has not had fevers. today the patient has a white blood count of 13.3. There is no left shift on her differential. She is afebrile. She is not tachycardic. Her abdomen seems fairly benign on my exam. The patient had a long wait in the waiting room to be seen by a provider. She has been here over 5 hours when I saw her. I reviewed the patient's recent records at [facility] which confirmed a pelvic ultrasound that was unremarkable. She had previously had a pelvic ultrasound in [place] that showed a small fibroma. She reports she also had a CT scan of the abdomen and pelvis with IV contrast when in [place] she says. I proposed possibly doing a CT scan to evaluate the patient's pain. I made this proposal before she told me that she had a CT scan and [place] fairly recently. The patient does not seem to be interested in having another CT scan and clinically I am not certain it would be helpful. . She seems primarily to be interested in getting something for her pain. Her mother was also very interested in the patient receiving additional medication for pain. The patient is currently scheduled to have surgery with Gynecology on June 28. the patient says that she cannot put up with this pain until then. I explained that I thought it might be unwise to initiate narcotics for a pain syndrome like this. The mother then said that the patient was been prescribed tramadol in [place] as that the tramadol was helpful. Ultimately I agreed to prescribe some tramadol for her pain. At that point the patient seemed content with a plan for discharge and to follow up with her world travel counselor and her primary care doctor. She should return if worse. Lab Data 06/05/25 16:56 06/05/25 16:56 Labs: Lab Results 06/05/25 06/05/25 Range/Units 16:56 20:29 WBC 13.3 H (4.8-10.8) X10*3/uL RBC 4.57 (4.20-5.50) X10*6/uL Hgb 12.4 (12.0-16.0) g/dl Hct 36.8 L (37.0-47.0) % MCV 80.5 (80.0-98.0) fL MCH 27.1 (27.0-33.0) pg MCHC 33.7 (31.0-35.0) g/dl RDW 14.3 (11.0-16.0) % Plt Count 372 D (160-400) X10*3/uL MPV 10.7 (9.4-12.3) fL Immature Gran % (Auto) 0.4 (0.0-0.4) % Neut % (Auto) 68.5 (45-73) % Lymph % (Auto) 22.9 (20-40) % [place] % (Auto) 6.5 (2-11) % Eos % (Auto) 1.5 (0-4) % Baso % (Auto) 0.2 (0-2) % Lymph # (Auto) 3.0 (1.2-4.9) X10*3/uL [place] # (Auto) 0.9 (0.1-1.2) X10*3/uL Eos # (Auto) 0.2 (0.0-0.4) X10*3/uL Baso # (Auto) 0.0 (0.0-0.2) X10*3/uL Abs Immat Gran (auto) 0.05 H (0.00-0.03) X10*3/uL Absolute Neuts (auto) 9.1 H (2.0-8.3) x10*3/uL Absolute Nucleated RBC 0.000 (0.0-0.012) X10*3/uL Nucleated RBC % (auto) 0.0 (0.0-0.2) /100WBC Sodium 140 (135-145) mmol/L Potassium 4.3 (3.3-5.1) mmol/L Chloride 111 H (96-108) mmol/L Carbon Dioxide 21 L (22-29) mmol/L Anion Gap 12 (12-20) BUN 11 (9-16) mg/dL Creatinine 0.75 (0.5-1.4) mg/dL Estim Creat Clear Calc 102.9 Estimated GFR > 60 Random Glucose 96 (60-115) mg/dL Calcium 9.1 (8.4-10.2) mg/dL Total Bilirubin 0.1 (0.0-1.0) mg/dL AST 15 (5-31) U/L ALT 10 (0-31) U/L Alkaline Phosphatase 75 (39-117) U/L C-Reactive Protein 2.95 H (< or = 0.50) mg/dL Total Protein 6.9 (6.5-8.0) g/dL Albumin 4.1 (3.5-5.0) g/dL Beta HCG, Quant < 2 mIU/mL Urine Color Yellow Urine Appearance Clear Urine pH 6.5 (5.0-9.0) Ur Specific [place] 1.010 (1.005-1.025) Urine Protein Negative (Neg-Trace) mg/dL Urine Glucose (UA) Negative (Negative) mg/dL Urine Ketones Negative (Negative) mg/dL Urine Blood Negative (Negative) Urine Nitrite Negative (Negative) Ur Leukocyte Esterase Small (1+) H (Negative) Urine RBC 0-2 (0-2) /HPF Urine WBC 6-10 H (0-5) /HPF Ur Squamous Epith Cells 3-5 (0-2) /HPF Urine Bacteria None Seen (None Seen) Hyaline Casts 0-2 (0-2) /LPF Urine Test NEGATIVE (NEGATIVE) Discharge Plan Discharge Clinical Impression: Pelvic pain Patient Disposition: Home, Self-Care Additional Instructions: I have sent prescriptions for acetaminophen, ketorolac, and tramadol to your pharmacy. Please contact your world travel counselor tomorrow to check in with them. You should also plan on following up with your primary care doctor for ongoing pain management. Return to the emergency department if you develop a fever or significant other worsening symptoms. Prescriptions: New acetaminophen 500 mg capsule 1,000 mg PO Q8H PRN (Reason: fever or pain) Qty: 14 0RF ketorolac 10 mg tablet 10 mg PO Q8H PRN (Reason: pain) Qty: 16 0RF Rx Instructions: maximum total duration of 5 days from all oral, intranasal, or parenteral formulations tramadol 50 mg tablet 50 mg PO Q8H PRN (Reason: pain) Qty: 12 0RF No Action nitroglycerin 0.4 % (w/w) ointment 1 inch IN BID Qty: 30 0RF docusate sodium 100 mg capsule 200 mg PO BEDTIME Qty: 180 1RF naproxen [Naprosyn] 500 mg tablet 500 mg PO BID fluoxetine 10 mg capsule 10 mg PO DAILY trazodone 50 mg tablet 20 mg PO DAILY Ex-Lax (sennosides) 15 mg tablet 10 mg PO BEDTIME magnesium citrate Solution 150 ml PO DAILY calcium polycarbophil [Fiber Laxative (ca polycarbo)] 625 mg tablet 1,250 mg PO DAILY 30 Days Qty: 60 3RF metronidazole [Flagyl] 375 mg capsule 375 mg PO BID omeprazole 20 mg capsule,delayed release(DR/EC) PO ONCE PRN ondansetron HCl 4 mg tablet 4 mg PO DAILY 5 Days Qty: 5 0RF Xulane 150-35 mcg/24 hr patch weekly 1 patch transdermal Q7D Rx Instructions: apply once weekly for 3 weeks of a 4-week cycle Referrals: Amanda Cosby CNP [Primary Care Provider, Family Practice] Chiquita Tolentino MD [Physician, F[employer]ARD OPERATOR] Interventions: ED Discharge Assessment Last Done: 06/05/25 22:40 Discharge Date/Time: 06/05/25 22:45 Print Language: Kinyarwanda
[2025-06-05 17:00] LABS: MANUAL DIFF FLAG NO
[2025-06-05 17:02] LABS: Hematocrit 36.8 % (37.0-47.0); Hemoglobin 12.4 g/dl (12.0-16.0); Imm Gran Abs Auto 0.05 X10*3/uL (0.00-0.03); Imm Gran Pct Auto 0.4 % (0.0-0.4); Lymphocytes Absolute Auto 3.0 X10*3/uL (1.2-4.9); Mean Corpuscular HGB Conc 33.7 g/dl (31.0-35.0); Mean Corpuscular Hemoglobin 27.1 pg (27.0-33.0); Mean Corpuscular Volume 80.5 fL (80.0-98.0); NRBC Abs Auto 0.000 X10*3/uL (0.0-0.012); NRBC Pct Auto 0.0 /100WBC (0.0-0.2); Platelet Count 372 X10*3/uL (160-400); Red Blood Count 4.57 X10*6/uL (4.20-5.50); White Blood Count 13.3 X10*3/uL (4.8-10.8)
[2025-06-05 17:28] LABS: Anion Gap 12 (12-20)
[2025-06-05 17:35] LABS: Alanine Aminotransferase 10 U/L (0-31); Albumin Level 4.1 g/dL (3.5-5.0); Alkaline Phosphatase 75 U/L (39-117); Aspartate Amino Transferase 15 U/L (5-31); Blood Urea Nitrogen 11 mg/dL (9-16); Calcium 9.1 mg/dL (8.4-10.2); Carbon Dioxide 21 mmol/L (22-29); Chloride 111 mmol/L (96-108); Creatinine Clr Calc Pharmacy 102.9; Estimated Glomerular Filt Rate > 60; Potassium 4.3 mmol/L (3.3-5.1); Sodium 140 mmol/L (135-145); Total Protein 6.9 g/dL (6.5-8.0)
[2025-06-05 20:14] VITALS: BP 114/66; PULSE 82; RESP 16; TEMP 36.8; O2SAT 98
--- NOTE | 2025-06-05 20:25 | PC.NURSE ---
this RN assumed care of this pt approximately @2014, pt noted to be laying supine, no apparent digress or respiratory distress noted, mom at the bedside, pt ambulated to bathroom independently w. a slow steady gait,clutching pelvic area
--- NOTE | 2025-06-05 20:31 | PC.NURSE ---
urine sample collected and sent to the lab at this time
[2025-06-05 20:40] LABS: Appearance Urine Clear; Glucose Urine UA Negative (Negative); PH 6.5 (5.0-9.0); Specific Gravity - Urine 1.010 (1.005-1.025); UMIC TRIGGER UACC YES
[2025-06-05 20:42] LABS: UPreg QC Valid YES
[2025-06-05 20:45] LABS: UACC Culture Trigger YES
[2025-06-05 22:20] VITALS: BP 115/56; PULSE 90; RESP 16; TEMP 36.9; O2SAT 98
[2025-06-05 22:40] VITALS: BP 115/56; PULSE 90; RESP 16; TEMP 36.9; O2SAT 98
== END 2025-06-05 22:45 | disposition home or self-care (01) ==
PROVIDERS: Physician Assistant; Emergency Provider Emergency Medicine; PCP Nurse Practitioner Family
DX: R10.20 Pelvic and perineal pain unspecified side (principal)
CPT/HCPCS: 36415; 80053; 81001; 81025; 84702; 85025; 86140; 87086; 96372; 99284; J1885